=== PATIENT | female | born 1960 | race Caucasian/White ===

== ENCOUNTER 2024-06-27 15:56 | Emergency (ER) | payer OTHER, SELFPAY ==
--- NOTE | ~2024-06-27 | XR_ITS ---
CHEST RADIOGRAPH, PA AND LATERAL CLINICAL HISTORY: cough, CRACKLES LEFT LOWER . COMPARISON: None available TECHNIQUE: PA and lateral views of the chest. FINDINGS The cardiomediastinal silhouette is unremarkable. The lungs are clear. Visualized osseous structures and soft tissues are unremarkable. IMPRESSION: No focal infiltrate or effusion. Reviewed, dictated and finalized at location A. K LEADER
[2024-06-27 16:05] VITALS: BP 120/94; PULSE 112; RESP 20; TEMP 37.7; O2SAT 100
--- OUTSIDE RECORDS SUMMARY | 2024-06-27 16:06 | XMS_ITS | Encounter Summary ---
Author Organization [facility] Address [address] [place] [address] Care Team Providers Care Erecting Engineer Name Role Phone Roberto Chahal MD Primary Care Provider [phone] Rachel Bran MD Primary Care Provider [phone] Encounter Details Date Type Department Care Team (Late st Contact Info) Description 05/16/2020 E-Advice [facility] [address] [place] [address] Roberto Chahal MD [address] [place], [place] [address] RE: Medication Question Social History Tobacco Use Types Packs/Day Years Used Date Smoking Tobacco: Former Cigarettes Q uit: 06/13/2018 Smokeless Tobacco: Never Alcohol Use Standard Drinks/Week Comments Yes 0 (1 standard drink = 0.6 oz pur e alcohol) PHQ-2 Answer Date Recorded PHQ-2 Score 0 04/11/2020 Inadequate Housing Answer Date Recorded Social Determinants: Housing (Overall Score Help er) 0 12/22/2018 Sexually Active Control Partners Comments Yes Sex and Gender Information Value Date Recorded Sex Assigned at Female 09/05/2020 3:26 PM CDT Gender Identity Female 09/05/2020 3:26 PM CDT Sexual Orientation Not on file Job Start Date Occupation Industry Not on file Not on file Not on file documented as of this encounter Ordered Prescriptions Prescription Sig Dispensed Refills Start Date End Da te simvastatin (ZOCOR) 20 MG tablet Take 2 tablets by mouth nightly. 90 tablet 3 05/17/2020 09/15/2020 documented in this encounter Miscellaneous Notes * Telephone Encounter - Aliya Polo, RN - 05/17/2020 8:37 AM CSTFrom: Kohli Early To: Roberto Chahal Sent: 05/16/2020 5:18 PM LADIES ATTENDANT Subject: Medication Question A nurse called me today and told me that I need to double my simvastatin dose to 2 tablets a day. Ihave enough tablets for 40 days. We are leaving for out of town this weekend I will not return until September 10. Can you send a prescription refill to [facility] at [address] for a refill? Thank you Kohli ES ATTENDANT documented in this encounter Plan of Treatment Not on file documented as of this encounter Visit Diagnoses Not on filedocumented in this encounter Discontinued Medications Medication Sig Discontinue Reason Start Date End Da te simvastatin (ZOCOR) 20 MG tablet Take 2 tablets by mouth nightly. Reorder 05/16/2020 05/17/2020 documented as of this encounter Care Teams Erecting Engineer Relationship Specialty Start Date End Date Roberto Chahal MD [address] [facility] [address] [place] [address] PCP - General Family Practice 11/28/18 02/12/22 Rachel Brna MD [address] [facility] [address] [place] [address] PCP - General Internal Medicine 02/13/22 documented as of this encounter
--- OUTSIDE RECORDS SUMMARY | 2024-06-27 16:06 | XMS_ITS | Encounter Summary ---
Author Organization [facility] Address [address] [place] [address] Care Team Providers Care Final Canoe Inspector Name Role Phone Roberto Chahal MD Primary Care Provider [phone] Rachel Bran MD Primary Care Provider [phone] Encounter Details Date Type Department Care Team (Late st Contact Info) Description 07/29/2020 E-Advice [facility] [address] [place] [address] Roberto Chahal MD [address] [place], [place] [id number] RE: Other Social History Tobacco Use Types Packs/Day Years [...] on file documented as of this encounter Miscellaneous Notes * Telephone Encounter - Sabrina Walden RN - 07/29/2020 10:47 AM CDTFrom: Kohli Early To: Roberto Chahal Sent: 07/29/2020 10:24 AM CDT Subject: Other Hi! I had the Dee vaccine today. I attached my card. Do you need anything else? Thanks Kohli documented in this encounter Plan of Treatment Not on file documented as of this encounter Visit Diagnoses Not on filedocumented in this encounter Care Teams Final Canoe Inspector Relationship Specialty Start Date End Date Roberto Chahal MD [address] [place] [address] PCP - General Family Practice 11/28/18 02/12/22 Rachel Bran MD [address] [facility] [address] [place] [address] PCP - General Internal Medicine 02/13/22 documented as of this encounter
--- OUTSIDE RECORDS SUMMARY | 2024-06-27 16:06 | XMS_ITS | Encounter Summary ---
Author Organization [facility] Address [address] [place] [address] Care Team Providers Care Geoscience Professor Name Role Phone Roberto Chahal MD Primary Care Provider [phone] Rachel Bran MD Primary Care Provider [phone] Encounter Details Date Type Department Care Team (Late st Contact Info) Description 12/28/2020 E-Advice [facility] [address] [place] [address] Roberto Chahal MD [address] [place], [place] [address] RE: Other Social History Tobacco Use Types [...] Miscellaneous Notes * Telephone Encounter - Aliya Polo RN - 12/28/2020 12:00 PM CDTFrom: Kohli Early To: Roberto Chahal Sent: 12/28/2020 11:50 AM CDT Subject: Other Hi What information did you give [place] about me? Thanks Kohli documented in this encounter Plan of Treatment Not on file documented as of this encounter Visit Diagnoses Not on filedocumented in this encounter Care Teams Geoscience Professor Relationship Specialty Start Date End Date Roberto Chahal MD [address] [place] [address] PCP - General Family Practice 11/28/18 02/12/22 Rachel Bran MD [address] [facility] [address] [place] [address] PCP - General Internal Medicine 02/13/22 documented as of this encounter
--- OUTSIDE RECORDS SUMMARY | 2024-06-27 16:07 | XMS_ITS | Encounter Summary ---
Author Organization [facility] Address [address] [place] [address] Care Team Providers Care Vp Of Product Name Role Phone Rachel Bran MD Primary Care Provider [phone] Encounter Details Date Type Department Care Team (Latest Contact Info) Description 07/20/2023 [employer]ring Message Enc [facility] Medical Group Multispecialty Care - [place] [address] [address] [place] [address] Rachel Bran MD [address] [place] [address] Question about my Social History Tobacco Use Types Packs/Day Years Used Date Smoking Tobacco: Former Cigarettes 0 06/13/1982 - 06/13/2017 Smokeless Tobacco: Never Comments:counseled by Dr Yanci graham Alcohol Use Standard Drinks/Week Comments Yes 6.7 (1 standard drink = 0.6 oz p ure alcohol) Campos 64. 1/2 alcohol PHQ-2 Answer Date Recorded Patient Health Questionnaire-2 Score 0 05/31/2023 Comments No Sex and Gender Information Value Date Recorded Sex Assigned at Not on file Legal Sex Female 3:32 PM CDT Gender Identity Not on file Sexual Orientation Not on file documented as of this encounter Plan of Treatment Not on file documented as of this encounter Visit Diagnoses Not on filedocumented in this encounter Care Teams Vp Of Product Relationship Specialty Start Date End Date Rachel Bran MD [address] [address] PCP - General INTERNAL MEDICINE 04/29/23 documented as of this encounter
--- OUTSIDE RECORDS SUMMARY | 2024-06-27 16:07 | XMS_ITS | Referral Summary ---
Author Organization [facility] Address [address] [place] [address] Care Team Providers Care Guest Relations Representative Name Role Phone Rachel Bran MD Primary Care Provider [phone] Allergies Active Allergy Reactions Criticality Noted Date Comments Penicillins HIVES,SWELLING 09/06/2004 Medications Medication Sig Dispensed Refills Start Date End Date Status Misc Natural Products (OCTACOSANOL) 1000-5 MCG-UNIT Tab Active Multiple Vitamins-Minerals (VITAMIN - THERAPEUTIC MULTIVITAMINS W/MINERALS) Tab Take 1 tablet by mouth daily. Active albuterol (PROAIR RESPICLICK) 108 (90 Base) MCG/ACT inhaler Inhale 2 puffs into the lungs every 4 hours as needed for Shortness of Breath or Wheezing. 1 Inhaler 11 12/30/2018 Active atorvastatin (LIPITOR) 40 MG tablet TAKE 1 TABLET BY MOUTH DAILY 12 tablet 02/13/2022 Active Active Problems No known active problems Immunizations Name Administration Dates Next Due COVID Dee/Denilson & Denilson 18Y+ 07/29/2020 Hep B, adult 09/14/1999,06/20/1998 Td (adult), 5 Lf tetanus tox oid, preserve free, adsorbed 12/09/2007 Tdap 01/13/2014 Tuberculin Skin Test Unspecified Formulation Social History Tobacco Use Types Packs/Day Years [...] file Not on file Not on file Last Filed Vital Signs Vital Sign Reading Time Taken Comments Blood Pressure 102/60 04/11/2020 11:50 AM LAST TRIMMER Pulse 105 04/11/2020 11:50 AM LAST TRIMMER Temperature 37 C (98.6 F) 02/28/2020 12:34 PM CDT Respiratory Rate 16 02/28/2020 12:34 PM CDT Oxygen Saturation 98% 04/11/2020 11:50 AM LAST TRIMMER Inhaled Oxygen Concentration - - Weight 66.2 kg (146 lb) 04/11/2020 11:50 AM LAST TRIMMER Height 160 cm (5' 3 ) 04/11/2020 11:50 AM LAST TRIMMER Body Mass Index 25.86 04/11/2020 11:50 AM LAST TRIMMER Plan of Treatment Not on file Procedures Procedure Name Priority Date/Time Associated Diagnosis Comments MAMMO SCREENING BILATERAL W JEWELL Routine 12/21/2020 11:33 AM CDT Visit for screening mammogram COLOGUARD Routine 04/25/2020 Screening for colorectal cancer from Last 3 Months or Most Recently Relevant to Health Maintenance Results * MAMMO SCREENING BILATERAL W JEWELL (12/21/2020 11:33 AM CDT) Anatomical Region Laterality Modality Breast Bilateral Mammography 12/21/2020 10:2 0 AM CDT Impressions 12/21/2020 11:33 AM CDT MAMMOGRAPHY INCOMPLETE NEED ADDITIONAL IMAGING EVALUATION The density in the left breast is indeterminate. Additional views with possible ultrasound are recommended. MAMMOGRAPHY BI-RADS: 0 Incomplete Need Additional Imaging Evaluation Electronically Signed by: Elijah costello/penrad:12/21/2020 11:33:33 Certified Activities Director: RT Ro(Danelle)(M), [facility] letter sent: Addl Imaging Single Exam Narrative 12/21/2020 11:33 AM CDT #[id number] - MAMMO SCREENING BILATERAL W JEWELL BILATERAL DIGITAL SCREENING MAMMOGRAM 3D/2D WITH CAD: 12/21/2020 CLINICAL HISTORY:Routine annual screening mammogram - tomosynthesis. COMPARISON: Comparison is made to exams dated: 11/18/2017 mammogram, 09/29/2014 ultrasound, 09/29/2014 mammogram, 07/30/2013 mammogram, and 03/07/2010 mammogram - [facility]. FINDINGS: The tissue of both breasts is heterogeneously dense. This may lower the sensitivity of mammography. There is a density in the left breast at 12 o'clock middle depth. No other significant masses, calcifications, or other findings are seen in either breast. Current study was also evaluated with a Computer Aided Detection (CAD) system. Digital Breast Tomosynthesis (DBT) images were obtained and used to assist in the interpretation of this examination. Procedure Note Elijah Castaneda MD - 12/21/2020 #[id number] - MAMMO SCREENING BILATERAL W JEWELL BILATERAL DIGITAL SCREENING MAMMOGRAM 3D/2D WITH CAD: 12/21/2020 CLINICAL HISTORY:Routine annual screening mammogram - tomosynthesis. COMPARISON: Comparison is made to exams dated: 11/18/2017 mammogram, 09/29/2014ultrasound, 09/29/2014 mammogram, 07/30/2013 mammogram, and 03/07/2010mammogram - [facility]. FINDINGS: The tissue of both breasts is heterogeneously dense. This may lower thesensitivity of mammography. There is a density in the left breast at 12 o'clock middle depth. No other significant masses, calcifications, or other findings are seen ineither breast. Current study was also evaluated with a Computer Aided Detection (CAD)system. Digital Breast Tomosynthesis (DBT) images were obtained and usedto assist in the interpretation of this examination. IMPRESSION: MAMMOGRAPHY INCOMPLETE NEED ADDITIONAL IMAGING EVALUATION The density in the left breast is indeterminate. Additional views withpossible ultrasound are recommended. MAMMOGRAPHY BI-RADS: 0 Incomplete Need Additional Imaging Evaluation Electronically Signed by: Elijah costello/chel:12/21/2020 11:33:33 Certified Activities Director: RT Ro(R)(M), [facility] letter sent: Addl Imaging Single Exam Altagracia Singh PA-C IMG BI PROCEDURES * COLOGUARD (04/25/2020) Altgaracia Singh PA-C LABORATORY - EXTERNA L ACL - ADVOCATE from Last 3 Months or Most Recently Relevant to Health Maintenance Care Teams Guest Relations Representative Relationship Specialty Start Date End Date Rachel Bran MD [address] [facility] [address] [place] [address] PCP - General Internal Medicine 02/13/22
--- OUTSIDE RECORDS SUMMARY | 2024-06-27 16:07 | XMS_ITS | Encounter Summary ---
Author Organization [facility] Address [address] [place] [address] Care Team Providers Care Graphic User Interface Designer Name Role Phone Roberto Chahal MD Primary Care Provider [phone] Rachel Bran MD Primary Care Provider [phone] Encounter Details Date Type Department Care Team (Late st Contact Info) Description 10/02/2021 E-Advice [facility] [address] [place] [id number] APPOINTMENT Social History Tobacco Use Types Packs/Day Years [...] on filedocumented in this encounter Care Teams Graphic User Interface Designer Relationship Specialty Start Date End Date Roberto Chahal MD [address] [place] [address] PCP - General Family Practice 11/28/18 02/12/22 Rachel Bran MD [address] [address] PCP - General Internal Medicine 02/13/22 documented as of this encounter
--- OUTSIDE RECORDS SUMMARY | 2024-06-27 16:07 | XMS_ITS | Clinical Summary ---
Author Organization [facility] Address [address] [place] [address] Care Team Providers Care High School Director Name Role Phone Rachel Bran MD Primary Care Provider [phone] Allergies Active Allergy Reactions Criticality Noted Date [...] file Not on file Not on file Obstetrics History Last Filed Vital Signs Vital Sign Reading Time Taken Comments Blood Pressure 102/60 04/11/2020 11:50 AM PULMONARY FUNCTION TECHNOLOGIST Pulse 105 04/11/2020 11:50 AM PULMONARY FUNCTION TECHNOLOGIST Temperature 37 C (98.6 F) 02/28/2020 12:34 PM CDT Respiratory Rate 16 02/28/2020 12:34 PM CDT Oxygen Saturation 98% 04/11/2020 11:50 AM PULMONARY FUNCTION TECHNOLOGIST Inhaled Oxygen Concentration - - Weight 66.2 kg (146 lb) 04/11/2020 11:50 AM PULMONARY FUNCTION TECHNOLOGIST Height 160 cm (5' 3 ) 04/11/2020 11:50 AM PULMONARY FUNCTION TECHNOLOGIST Body Mass Index 25.86 04/11/2020 11:50 AM PULMONARY FUNCTION TECHNOLOGIST Plan of Treatment Health Maintenance Due Date Last Done Comments Depression Screening 1971 Hepatitis B Vaccine (For Physician/APC Discussion) (3 of 3 - 19+ 3-dose series) 11/09/1999 09/14/1999, 06/20/1998 CT Colonography 2004 Colonoscopy 2004 Fecal Occult Blood 2004 Sigmoidoscopy 2004 Pneumococcal Vaccine 50+ (1 of 1 - PCV) 2009 Shingles Vaccine (1 of 2) 2009 Breast Cancer Screening 12/21/2021 12/22/19, 11/18/2017, 09/29/2014, Additional history exists Cologuard 04/25/2023 04/25/2020, 04/12, 08/15/2016 Colorectal Cancer Screen 04/25/2023 COVID-19 Vaccine (2 - 2023- season) 2024 07/29/2020 Influenza Vaccine (#1) 2024 DTaP/Tdap/Td Vaccine (2 - Td or Tdap) 01/14/2024 01/13/2014, 12/09/2007 Osteoporosis Screening 2024 Respiratory Syncytial Virus (RSV) Vaccine 60+ (1 - 1-dose 75+ series) 2034 HPV Vaccine Aged Out No longer eligi ble based on patient's age to complete this topic Hepatitis A Vaccine Aged Out No longe r eligible based on patient's age to complete this topic Meningococcal Serogroup B Vaccine Aged Out No longer eligible based on patient's age to complete this topic Meningococcal Vaccine Aged Out No eder alyssa eligible based on patient's age to complete this topic Pneumococcal Vaccine 0-49 Aged Out No longer eligible based on patient's age to complete this topic Procedures Procedure Name Priority Date/Time Associated Diagnosis [...] Evaluation Electronically Signed by: Elijah costello/chel:12/21/2020 11:33:33 Tile And Mottle Supervisor: Mary Jimenez RT(R)(M), [facility] letter sent: Addl Imaging Single Exam Narrative 12/21/2020 11:33 AM CDT #[id number] - MAMMO SCREENING BILATERAL W JEWELL BILATERAL DIGITAL SCREENING MAMMOGRAM 3D/2D WITH CAD: 12/21/2020 CLINICAL HISTORY:Routine annual screening mammogram - tomosynthesis. COMPARISON: Comparison is made to exams dated: 11/18/2017 mammogram, 09/29/2014 ultrasound, 09/29/2014 mammogram, 07/30/2013 mammogram, and 03/07/2010 mammogram - [facility]. FINDINGS: The tissue of both breasts is [...] Procedure Note Elijah Castaneda MD - 12/21/2020 #[id number] - MAMMO SCREENING BILATERAL W JEWELL BILATERAL DIGITAL SCREENING MAMMOGRAM 3D/2D WITH CAD: 12/21/2020 CLINICAL HISTORY:Routine annual screening mammogram - tomosynthesis. COMPARISON: Comparison is made to exams dated: 11/18/2017 mammogram, 09/29/2014ultrasound, 09/29/2014 mammogram, 07/30/2013 mammogram, and 03/07/2010mammogram - [facility]. FINDINGS: The tissue of both breasts is [...] Evaluation Electronically Signed by: Elijah costello/chel:12/21/2020 11:33:33 Tile And Mottle Supervisor: Mary Jimenez RT(R)(M), [facility] letter sent: Addl Imaging Single Exam Altagracia Singh PA-C IMG BI PROCEDURES * COLOGUARD (04/25/2020) Altagracia Singh PA-C LABORATORY - EXTERNA L ACL - ADVOCATE from Last 3 Months or Most Recently Relevant to Health Maintenance Care Teams High School Director Relationship Specialty Start Date End Date Rachel Bran MD [address] [facility] [address] [place] [address] PCP - General Internal Medicine 02/13/22
--- OUTSIDE RECORDS SUMMARY | 2024-06-27 16:07 | XMS_ITS | Encounter Summary ---
Author Organization [facility] Address [address] [place] [address] Care Team Providers Care Avionics Manager Name Role Phone Rachel Bran MD Primary Care Provider [phone] Encounter Details Date Type Department Care Team (Late st Contact Info) Description 06/01/2023 GoChime Message Enc [facility] Medical Group Multispecialty Care [place] [address] [address] [place] [address] Rachel Bran MD [address] [place] [phone] Cholesterol Social History Tobacco Use Types Packs/Day Years [...] on filedocumented in this encounter Care Teams Avionics Manager Relationship Specialty Start Date End Date Rachel Bran MD [address] [address] PCP - General INTERNAL MEDICINE 12/18/23 documented as of this encounter
--- OUTSIDE RECORDS SUMMARY | 2024-06-27 16:07 | XMS_ITS | Encounter Summary ---
Author Organization [facility] Address [address] [place] [address] Care Team Providers Care Key Carrier Name Role Phone Rachel Bran MD Primary Care Provider [phone] Encounter Details Date Type Department Care Team (Latest Contact Info) Description 04/28/2023 [email or web address] Message Enc [facility] Medical Group Multispecialty Care - [place] [address] [address] [place] [address] Rachel Bran MD [address] [place] [address] Rash and random bruises Social History Tobacco Use Types Packs/Day Years Used Date Smoking Tobacco: Former Cigarettes 0 06/13/1982 - 06/13/2017 Smokeless Tobacco: Never Comments:counseled by Dr Yanci graham Alcohol Use Standard Drinks/Week Comments Yes 6.7 (1 standard drink = 0.6 oz p ure alcohol) Campos 64. 1/2 alcohol PHQ-2 Answer Date Recorded PHQ-2 Score - If the patient scores above 3, please move on to questions 3-9 0 02/26/2022 Comments No Sex and Gender Information Value Date Recorded Sex Assigned at Not on file Legal Sex Female 3:32 PM CDT Gender Identity Not on file Sexual Orientation Not on file documented as of this encounter Plan of Treatment Not on file documented as of this encounter Visit Diagnoses Not on filedocumented in this encounter Care Teams Key Carrier Relationship Specialty Start Date End Date Rachel Bran MD [address] [place] [address] PCP - General INTERNAL MEDICINE 04/29/23 documented as of this encounter
--- OUTSIDE RECORDS SUMMARY | 2024-06-27 16:07 | XMS_ITS | Encounter Summary ---
Author Organization [facility] Address [address] [place] [address] Care Team Providers Care Paste Up Copy Camera Operator Name Role Phone Rachel Bran MD Primary Care Provider [phone] Encounter Details Date Type Department Care Team (Latest Contact Info) Description 05/02/2023 JournalDoc Message Enc [facility] Multispecialty Care - [place] [address] [address] [place] [address] Rachel Bran MD [address] [place] [phone] Shingles vaccine Social History Tobacco Use Types Packs/Day Years [...] on filedocumented in this encounter Care Teams Paste Up Copy Camera Operator Relationship Specialty [place] [address] [place] [address] PCP - General INTERNAL MEDICINE 04/29/23 documented as of this encounter
--- OUTSIDE RECORDS SUMMARY | 2024-06-27 16:07 | XMS_ITS | Clinical Summary ---
Author Organization [facility] Address [address] [place] [address] Care Team Providers Care Wood Milling Machine Hand Name Role Phone Rachel Bran MD Primary Care Provider [phone] Allergies Active Allergy Reactions Criticality Noted Date Comments Penicillins Diarrhea,Nausea and Vomiting,Runny Nose,Shortness of Breath High 02/26/2022 Medications Multiple Vitamins-Minerals (EYE VITAMINS) Cap Take by mouth once. Active vitamin E 450 MG (1000 UT) Cap Take by mouth daily. Active collagenase (SANTYL) ointment Apply topically daily. Active aspirin 81 MG chewable tabletIndications :Bilateral carotid artery stenosis Chew 1 tablet (81 mg total) by mouth daily. 90 tablet 3 11/27/19 24 Active atorvastatin (LIPITOR) 40 MG tabletIndications :Mixed hyperlipidemia TAKE 1 TABLET BY MOUTH EVERY DAY 90 tablet 05/30/19 25 Active atorvastatin (LIPITOR) 40 MG tabletIndications :Mixed hyperlipidemia Take 1 tablet (40 mg total) by mouth daily. 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 Medical [facility] Multispecialty Care - [address] [place] [address] Rachel Bran MD Follow Up Call from Last 3 Months Immunizations Name Administration Dates Next Due Dt (1-<7 Y.O.) 12/09/2007 Hepatitis B (Generic: Adult) 09/14/1999,06/20/18 99 [employer] ([employer]) COVID-19 AD26 VACCINE 0.5 ML IM SUSP 07/29/2020 Shingrix 05/28/2023 Family History Medical History Relation Comments Alcohol Abuse Father Arthritis Mother Hypertension Mother Stroke Mother Relation Status Comments Father Mother Social History Tobacco Use Types Packs/Day Years Used Date Smoking Tobacco: Former Cigarettes 0 06/13/1982 - 06/13/2017 Smokeless Tobacco: Never Tobacco Cessation:Counseling Given: Yes Comments:counseled by Dr Bran Alcohol Use Standard Drinks/Week Comments Yes 6.7 (1 standard drink = 0.6 oz p ure alcohol) Campos 64. 1/2 alcohol PHQ-2 Answer Date Recorded Patient Health Questionnaire-2 Score 0 05/31/2023 Comments No Sex and Gender Information Value Date Recorded Sex Assigned at Not on file Legal Sex Female 3:32 PM CDT Gender Identity Not on file Sexual Orientation Not on file Last Filed Vital Signs Vital Sign Reading Time Taken Comments Blood Pressure 106/63 11/27/2023 2:06 PM CDT Pulse 85 11/27/2023 2:06 PM CDT Temperature 36.9 C (98.4 F) 11/27/2023 2:06 PM CDT Respiratory Rate 18 07/03/2023 11:40 AM SIGN CARPENTER Oxygen Saturation 99% 07/03/2023 11:40 AM SIGN CARPENTER Inhaled Oxygen Concentration - - Weight 67 kg (147 lb 12.8 oz) 11/27/2023 2:06 PM CDT Height 160 cm (5' 3 ) 11/27/2023 2:06 PM CDT Body Mass Index 26.18 11/27/2023 2:06 PM CDT Plan of Treatment Health Maintenance Due Date Last Done Comments DTaP, Tdap and Td Vaccines (1 - Tdap) 12/10/2007 12/09/2007 Mammogram Screening 11/19/2019 11/18/2017 Zoster Vaccines (2 of 2) 07/23/2023 05/28/2023 COVID-19 Vaccine (3 - season) 2024 05/03/2021, 07/29/2020 Influenza Adult (#1) 2024 PHQ-2 (Physician [place]) 05/13/2024 05/31/2023 Dexa Scan (General) 2024 Pneumococcal Vaccine: 65+ Years (1 of 1 - PCV) 2024 Colorectal Cancer Screening FIT-DNA (3 Years) 06/14/2026 06/14/2023, 06/14/2023, 04/25/2020, Additional history exists RSV Immunization or 60+ Years (1 - 1-dose 75+ series) 2034 Hepatitis C Completed 02/26/2022 Meningococcal B Vaccine Aged Out No l onger eligible based on patient's age to complete this topic Meningococcal Vaccine Aged Out No eder alyssa eligible based on patient's age to complete this topic Pneumococcal Vaccine: Pediatrics (0 to 5 Years) and At-Risk Patients (6 to 64 Years) Aged Out No longer eligible based on patient's age to complete this topic RSV Immunizations Under 20 Months Aged Out No longer eligible based on patient's age to complete this topic Procedures Procedure Name Priority Date/Time Associated Diagnosis Comments COLOGUARD (EXACT SCIENCE) Routine 06/14/2023 6:45 AM SIGN CARPENTER Screen for colon cancer HEPATITIS C ANTIBODY Routine 02/26/2022 8:54 AM CDT Annual physical exam Encounter for medical examination to establish care General medical exam Encounter for hepatitis C screening test for low risk patient MAMMOGRAM GENERIC (SCAN ORDER) 11/18/2017 from Last 3 Months or Most Recently Relevant to Health Maintenance Results * COLOGUARD (EXACT SCIENCE) (06/14/2023 6:45 AM SIGN CARPENTER) COLOGUARD RESULT Negative Negative [facility] (CLIA #:[id number]) Comment: NEGATIVE TEST RESULT. A negative Cologuard result indicates a low likelihood that a colorectal cancer (CRC) or advanced adenoma (adenomatous polyps with more advanced pre-malignant features) is present. The chance that a person with a negative Cologuard test has a colorectal cancer is less than 1 in 1500 (negative predictive value >99.9%) or has an advanced adenoma is less than 5.3% (negative predictive value 94.7%). These data are based on a prospective cross-sectional study of 10,000 individuals at average risk for colorectal cancer who were screened with both Cologuard and colonoscopy. (Bridget Celeste al, N Engl J Med 2014;370(14):4952-7176) The normal value (reference range) for this assay is negative. COLOGUARD RE-SCREENING RECOMMENDATION: Periodic colorectal cancer screening is an important part of preventive healthcare for asymptomatic individuals at average risk for colorectal cancer. Following a negative Cologuard result, the [place] [employer] and U.S. Multi-Society Task Force screening guidelines recommend a Cologuard re-screening interval of 3 years. References: [place] [employer] Guideline for Colorectal Cancer Screening: https://www.cancer.org/cancer/pxwoc-rohxnm-ezybsv/ufratbafu-hnheljdzq-xxlbsko/ac s-rec ommendations.html.; Jarod DK, Sue CHUNG, Roni DukesK, Colorectal Cancer Screening: Recommendations for Physicians and Patients from the U.S. Multi-Society Task Force on Colorectal Cancer Screening , Am J Gastroenterology 2017; 112:5717-7793. TEST DESCRIPTION: Composite algorithmic analysis of stool DNA-biomarkers with hemoglobin immunoassay. Quantitative values of individual biomarkers are not reportable and are not associated with individual biomarker result reference ranges. Cologuard is intended for colorectal cancer screening of adults of either sex, 45 years or older, who are at average-risk for colorectal cancer (CRC). Cologuard has been approved for use by the U.S. FDA. The performance of Cologuard was established in a cross sectional study of average-risk adults aged 50-84. Cologuard performance in patients ages 45 to 49 years was estimated by sub-group analysis of near-age groups. Colonoscopies performed for a positive result may find as the most clinically significant lesion: colorectal cancer [4.0%], advanced adenoma (including sessile serrated polyps greater than or equal to 1cm diameter) [20%] or non- advanced adenoma [31%]; or no colorectal neoplasia [45%]. These estimates are derived from a prospective cross-sectional screening study of 10,000 individuals at average risk for colorectal cancer who were screened with both Cologuard and colonoscopy. (Bridget Celeste al, N Engl J Med 2014;370(14):2146-1640.) Cologuard may produce a false negative or false positive result (no colorectal cancer or precancerous polyp present at colonoscopy follow up). A negative Cologuard test result does not guarantee the absence of CRC or advanced adenoma (pre-cancer). The current Cologuard screening interval is every 3 years. ([place] [employer] and U.S. Multi-Society Task Force). Cologuard performance data in a 10,000 patient pivotal study using colonoscopy as the reference method can be accessed at the following location: www.SigmaFlow.Skypaz/results. Additional description of the Cologuard test process, warnings and precautions can be found at www.cologuard.com. STOOL STOOL SPECIMEN / Unknown 06/14/2023 6:45 AM SIGN CARPENTER 06/15/2023 10:19 AM SIGN CARPENTER us Rachel Bran MD BODY FLUIDS AND STOOLS ORDERABLE S Final Result Performing Organization Address [facility] Co de Phone Number [facility] ([facility] [address] [facility]) [address] [place] [address], [facility] (CLIA #:[id number]) [address] [place] [address] * HEPATITIS C ANTIBODY (02/26/2022 8:54 AM CDT) HEPATITIS C AB NON-REACTI VE NON-REACT BRIAN 02/27/2022 4:33 PM CDT [facility] Comment: ANTIBODIES TO HCV NOT DETECTED. DOES NOT EXCLUDE THE POSSIBILITY OF EXPOSURE TO HCV. 02/26/2022 8:54 AM CDT us Rachel Bran MD LABORATORY Final Result Performing Organization Address [facility] Co de Phone Number [facility] [address] [place] [address], [phone] * MAMMOGRAM GENERIC (11/18/2017) Anatomical Region Laterality Modality Other 11/18/2017 [facility] Scanned SCANNING Final Resu lt from Last 3 Months or Most Recently Relevant to Health Maintenance Insurance GENERIC - COMMERCIAL Care Teams Wood Milling Machine Hand Relationship Specialty Start Date End Date Rachel Bran MD [address] [address] PCP - General INTERNAL MEDICINE 04/29/23
--- OUTSIDE RECORDS SUMMARY | 2024-06-27 16:07 | XMS_ITS | Encounter Summary ---
Author Organization [facility] Address [address] [place] [address] Care Team Providers Care Special Education Supervisor Name Role Phone Rachel Bran MD Primary Care Provider [phone] Encounter Details Date Type Department Care Team (Latest Contact Info) Description 07/02/2023 Remotium Message Enc [facility] Medical Group Multispecialty Care - [address] [address] [address] [place] [address] Rachel Bran MD [address] [place] [address] Chest x-ray and mammogram question Social History Tobacco Use Types Packs/Day Years [...] on filedocumented in this encounter Care Teams Special Education Supervisor Relationship Specialty Start Date End Date Rachel Bran MD [address] [address] PCP - General INTERNAL MEDICINE 04/29/23 documented as of this encounter
--- OUTSIDE RECORDS SUMMARY | 2024-06-27 16:07 | XMS_ITS | Clinical Summary ---
Author Organization [facility] Address [address] [place] [id number] Care Team Providers Care Database Admin Name Role Phone Unavailable Primary Care Provider Unavailabl e Encounters Date Type Department Care Team Description 06/04/2024 External Device Data [facility] ABSTRACTION Provider, Abstract 05/26/2024 External Device Data [facility] ABSTRACTION Provider, Abstract from Last 3 Months Social History Tobacco Use Types Packs/Day Years Used Date Smoking Tobacco: Never Assessed Comments Unknown Sex and Gender Information Value Date Recorded Sex Assigned at Not on file Legal Sex Female 11:05 AM CDT Gender Identity Not on file Sexual Orientation Not on file Plan of Treatment Health Maintenance Due Date Last Done Comments Pre-Diabetes and Diabetes Screening 1959 BREAST CANCER SCREENING 1999 COLORECTAL SCREENING 2004 Colorectal Cancer Screening 2004 FIT-DNA Q 3 years 2004 FIT/FOBT Q 1 year 2004 Flex Sig/CT Colonography Q 5 years 2004 PNEUMOCOCCAL VACCINE 65+ YEA RS (1 of 1 - PCV) 2009 DTAP/TDAP/TD VACCINES (2 - Tdap) 12/08/2017 12/09/19 08 ZOSTER VACCINE (2 of 2) 07/23/2023 05/28/2023 INFLUENZA VACCINE (#1) 2023 OSTEOPOROSIS SCREENING 2024 CERVICAL CANCER SCREENING 07/03/2026 07/03/2023 RSV VACCINE (60+ or ) (1 - 1-dose 75+ series) 2034 PNEUMOCOCCAL VACCINE 0-64 YEARS Aged Out No longer eligible based on patient's age to complete this topic Insurance GENERIC PAYOR
--- OUTSIDE RECORDS SUMMARY | 2024-06-27 16:07 | XMS_ITS | Encounter Summary ---
Author Organization [facility] Address [address] [place] [address] Care Team Providers Care Phonograph Mechanic Name Role Phone Rachel Bran MD Primary Care Provider [phone] Encounter Details Date Type Department Care Team (Latest Contact Info) Description 10/29/2023 AtlanteTrek Message Enc [facility] Medical Group Multispecialty Care [address] [address] [address] [place] [address] Rachel Bran MD [address] [place] [address] Atorvastatin question Social History Tobacco Use Types Packs/Day [...] on filedocumented in this encounter Care Teams Phonograph Mechanic Relationship Specialty Start Date End Date Rachel Bran MD [address] [address] PCP - General INTERNAL MEDICINE 12/18/23 documented as of this encounter
--- NOTE | 2024-06-27 17:29 | ED.GENADULT ---
HPI - General Adult General Chief complaint: Upper Respiratory Infection Stated complaint: Chest Cold Source: patient Mode of arrival: ambulatory Limitations: no limitations History of Present Illness HPI narrative: Patient presents for evaluation of sick symptoms. She indicates 2 weeks ago she had norovirus. Approximately 1 week later her symptoms improved. Five days ago she developed nasal congestion postnasal drainage. She now has a dry cough. She denies any fever, chills, nausea, vomiting. She does have some pleuritic chest discomfort. She is a former smoker with quit date approximately 8 years ago. She is taking [id number]-shr-[id number] cough suppressant. Related Data Home Medications ?Medication ?Instructions ?Recorded ?Confirmed ?Last Taken ?Type aspirin 81 mg chewable tablet 06/27/24 Unknown History atorvastatin 40 mg tablet mg 06/27/24 Unknown History Allergies Allergy/AdvReac Type Severity Reaction Status Date / Time Penicillins Allergy Intermediate Swelling Verified 06/27/24 16:20 Review of Systems Review of Systems: CONSTITUTIONAL: Denies fever, chills, or sweats. EYES: Denies visual changes, redness, or discharge. ENT: Reports sinus congestion and postnasal drainage. Denies otalgia. CARDIOVASCULAR: Denies palpitations or edema. RESPIRATORY: Reports cough and pleuritic chest pain. Denies shortness of breath GASTROINTESTINAL: Denies abdominal pain, nausea, vomiting, or diarrhea. GENITOURINARY: Denies dysuria or hematuria. SKIN: Denies rash or itching. MUSCULOSKELETAL: Denies back pain, joint pain, or myalgia. NEUROLOGIC: Denies headache, numbness, dizziness, or weakness. PSYCHIATRIC: Denies anxiety or depression. [facility] Past Medical History Medical History (Updated 06/27/24 @ 17:56 by CHER Jameson, ) No pertinent past medical history Surgical History Surgical History History of Family History Family History Mother Family history non-contributory Social History Social History Smoking status: Former smoker Tobacco type: cigarettes Gender identity (if verbalized by the patient): Female Sexual Orientation (if Verbalized by the Patient): Straight or Heterosexual Spiritual care concerns: No Exam Narrative: GENERAL: Well-appearing, well-nourished, and in no acute distress. HEAD: Normocephalic, atraumatic. EYES: PERRLA and EOMI. ENT: Nares clear, no rhinorrhea or epistaxis. Mucous membranes moist. Oropharynx without tonsillar hypertrophy exudate or other lesions. Bilateral TMs pearly casey nonbulging NECK: Supple. No adenopathy or masses. No carotid bruits or JVD CHEST: Cough present on exam/ Clear to auscultation. No respiratory distress. No wheezes rales or rhonchi HEART: Regular rate and rhythm. No murmur heard. Normal peripheral pulses. ABDOMEN: Soft, nontender, nondistended, normal active bowel sounds. EXTREMITIES: Normal range of motion. No edema. SKIN: Warm, dry, no rash. NEURO: No focal deficits. Alert and oriented x3. PSYCH: Normal mood and affect. Course Course Emergency Course: This is a 64-year-old female who presented for evaluation of sick symptoms. COVID and influenza were negative. Chest x-ray was ordered and performed. Patient wanted to leave prior to receiving results. We agreed to empirically treat for pneumonia. She states she can tolerate amoxicillin/augmentin despite PCN allergy. Will dc with azithromycin and augmentin. Increase hydration. Enry-ukp-cpohptx agents for symptom management. Follow up with primary provider. Go to the ER for worsening symptoms. Patient in agreement with plan of care Level of Care: Express Care Visit Vital Signs Vital signs: Vital Signs Temperature 37.7 C H 06/27/24 16:05 Pulse Rate 112 H 06/27/24 16:05 Respiratory Rate 06/27/24 16:05 Blood Pressure 120/94 H 06/27/24 16:05 Pulse Oximetry 100 06/27/24 16:05 Oxygen Delivery Room Air 06/27/24 16:05 Temperature 37.7 C H 06/27/24 16:05 Pulse Rate 112 H 06/27/24 16:05 Respiratory Rate 06/27/24 16:05 Blood Pressure 120/94 H 06/27/24 16:05 Pulse Oximetry 100 06/27/24 16:05 Oxygen Delivery Room Air 06/27/24 16:05 Medical Decision Making Vital Signs Vital Signs: Vital Signs Temperature 37.7 C H 06/27/24 16:05 Pulse Rate 112 H 06/27/24 16:05 Respiratory Rate 20 06/27/24 16:05 Blood Pressure 120/94 H 06/27/24 16:05 Pulse Oximetry 100 06/27/24 16:05 Oxygen Delivery Room Air 06/27/24 16:05 Temperature 37.7 C H 06/27/24 16:05 Pulse Rate 112 H 06/27/24 16:05 Respiratory Rate 20 06/27/24 16:05 Blood Pressure 120/94 H 06/27/24 16:05 Pulse Oximetry 100 06/27/24 16:05 Oxygen Delivery Room Air 06/27/24 16:05 Discharge Plan Discharge Clinical Impression: At high risk for pneumonia Patient Disposition: Home, Self-Care Condition: Stable Instructions: Antibiotic Form, Community Acquired Pneumonia (DC) Patient Language: Welsh Prescriptions: New amoxicillin-pot clavulanate 875-125 mg tablet 1 tablet PO Q12H Qty: 20 0RF azithromycin 250 mg tablet See Rx Instructions .ROUTE .COMPLEX Qty: 6 0RF Rx Instructions: For 250 mg dose pack: take 500 mg today (day 1), then 250 mg for 4 days (days 2-5) No Action atorvastatin 40 mg tablet aspirin 81 mg tablet,chewable Follow-up/Referrals: Yina,MD Rachel [Primary Care Provider] - Time of Disposition: 17:57
[2024-06-27] MEDS: AZITHROMYCIN 250 MG TABLET 500 MG PO (18:05)
[2024-06-27 20:10] LABS: EDCOVIDSCREEN Negative (Negative); EDINFLUASCREEN Negative (Negative); EDINFLUBSCREEN Negative (Negative)
== END 2024-06-27 18:20 | disposition home or self-care (01) ==
PROVIDERS: Emergency Provider Nurse Practitioner; PCP Internal Medicine
DX: R05.9 Cough, unspecified (principal); Z20.822 Contact with and (suspected) exposure to COVID-19
CPT/HCPCS: 71046; 87426; 87804; 99213; A9270; G0463